=== PATIENT | male | born 1940 | race Caucasian/White ===

== ENCOUNTER 2017-09-20 07:32 | Day surgery (SDC) | payer OTHER ==
[2017-09-20] MEDS ORDERED: LIDOCAINE 1% 20 ML MDV ID STA (08:09)
[2017-09-20] MEDS ORDERED: VERSED ONE (09:15)
[2017-09-20] MEDS ORDERED: DIPRIVAN 20 ML VIAL IVP ONE (09:15)
--- NOTE | 2017-09-20 14:50 | OP ---
PROCEDURE: COLONOSCOPY TO THE CECUM WITH SNARE POLYPECTOMY. ENDOSCOPIST: Jonathan MADISON M.D. INDICATION: HISTORY OF POLYPS. 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 MEDICATION: PER ANESTHESIA. PROCEDURE: The patient was positioned for colonoscopy. The digital rectal exam was negative. The colonoscope was inserted through the anus and advanced to the cecum. The cecum was identified using the ileocecal valve and the appendiceal orifice as landmarks. The scope was slowly withdrawn through an adequately prepped colon. Small polyp at the hepatic flexure removed using snare cautery. Two small polyps at 20 cm removed using snare cautery. Scattered diverticula in the left colon. Retroflex exam was otherwise normal. Withdrawal time 11 minutes and 50 seconds. PLAN: 1. Suggest repeat colonoscopy in 5 years. CC: DR. KRISTIE KOO
[2017-09-20 15:25] VITALS: BP 123/67; TEMP 98.6
== END 2017-09-20 10:55 | disposition home or self-care (01) ==
LOC: SURG 07:32
PROVIDERS: ATTEND Internal Medicine Gastroenterology
DX: Z09 Encounter for follow-up examination after completed treatment for conditions other than malignant neoplasm (principal); Z86.010 Personal history of colon polyps; D12.7 Benign neoplasm of rectosigmoid junction; D12.3 Benign neoplasm of transverse colon; K57.30 Diverticulosis of large intestine without perforation or abscess without bleeding